=== PATIENT | female | born 1970 | race Caucasian/White ===

== ENCOUNTER 2021-06-27 12:10 | Emergency (ER) | payer OTHER, SELFPAY ==
--- NOTE | 2021-06-27 12:12 | XRR_ITS ---
PROCEDURE INFORMATION: Exam: XR Chest Exam date and time: 06/27/2021 12:12 PM Age: 51 years old Clinical indication: Condition or disease; Other: Covid TECHNIQUE: Imaging protocol: XR of the chest. Views: 1 view. COMPARISON: CR FluoroG CVA w CXR [id number] 03/29/2015 10:38 AM FINDINGS: Lungs: Unremarkable. No consolidation. Pleural spaces: Unremarkable. No pleural effusion. No pneumothorax. Heart/Mediastinum: Unremarkable. No cardiomegaly. Bones/joints: Unremarkable. XR/XR chest 1V portable [id number] IMPRESSION: No acute findings.
--- NOTE | 2021-06-27 12:13 | ECG_ITS ---
[facility] Test Date: 2021-06-27 Pat Name: Lor Picktet Department: Room: Gender: Female [employer] Operator: : [id number] Requested By: Noemy Evans Order Number: [id number] Shaw MD: Tay Webster M.D. Measurements Intervals [place] Rate: 73 P: 46 VT: 144 QRS: 16 QRSD: 93 T: 50 QT: 376 QTc: 415 Interpretive Statements SINUS RHYTHM No previous ECG available for comparison Electronically Signed On 06-27-2021 17:27:42 CDT by Tay Webster M.D. [id number]
[2021-06-27 12:28] VITALS: BP 128/88; PULSE 89; RESP 19; TEMP 37; O2SAT 97; BMI 29.2
== END 2021-06-27 14:36 | disposition left against medical advice (07) ==
LOC: ER 13:20
PROVIDERS: PCP Physician Assistant
DX: Z53.21 Procedure and treatment not carried out due to patient leaving prior to being seen by health care provider (principal)
CPT/HCPCS: 71045; 93005

== ENCOUNTER 2021-07-22 09:34 | Outpatient (CLI) | payer OTHER, SELFPAY ==
--- NOTE | 2021-07-22 09:43 | MM_ITS ---
WS: [id number] BILATERAL DIGITAL SCREENING MAMMOGRAPHY WITH CAD CLINICAL INFORMATION: SCREENING HISTORY: Screening mammogram. No current complaints. COMPARISON: TECHNIQUE: Bilateral CC and MLO views. FINDINGS: Scattered fibroglandular densities bilaterally. No suspicious focal mass, asymmetry, calcifications, or architectural distortion. No evidence of malignancy. A few incidental punctate calcifications. MM/[place] [id number] IMPRESSION: BI-RADS: 2-Benign FOLLOW UP: 1 Year Follow-up Recommend return to annual screening mammography.
== END 2021-07-22 09:35 | disposition home or self-care (01) ==
LOC: RADSHAW 09:40
PROVIDERS: PCP Physician Assistant; Visit Provider Obstetrics & Gynecology
DX: Z12.31 Encounter for screening mammogram for malignant neoplasm of breast (principal)
CPT/HCPCS: 77067

== ENCOUNTER 2022-05-08 13:32 | Oncology outpatient (recurring) (ONCR) | payer OTHER, SELFPAY | END 2022-05-18 23:59 | disposition home or self-care (01) | PROVIDERS: PCP Physician Assistant; Visit Provider Internal Medicine Medical Oncology | DX: C82.35 Follicular lymphoma grade IIIa, lymph nodes of inguinal region and lower limb (principal); R53.83 Other fatigue; R40.0 Somnolence | CPT/HCPCS: 99203 ==

== ENCOUNTER 2024-01-24 14:56 | Outpatient (CLI) | payer OTHER, SELFPAY ==
--- NOTE | 2024-01-24 15:30 | MM_ITS ---
WS: [id number] BILATERAL 3D TOMOSYNTHESIS DIGITAL SCREENING MAMMOGRAPHY WITH CAD CLINICAL INFORMATION: SCREENING HISTORY: Screening mammogram. No current complaints. COMPARISON: 2020 TECHNIQUE: Bilateral CC and MLO views. FINDINGS: Scattered fibroglandular densities bilaterally. No suspicious focal mass, asymmetry, calcifications, or architectural distortion. No evidence of malignancy. Incidental punctate calcifications. IMPRESSION: MM/[place] [id number] BI-RADS: 2-Benign FOLLOW UP: 1 Year Follow-up Recommend return to annual screening mammography.
== END 2024-01-24 14:57 | disposition home or self-care (01) ==
LOC: MOBLMAM 15:28
PROVIDERS: PCP Physician Assistant; Visit Provider Physician Assistant
DX: Z12.31 Encounter for screening mammogram for malignant neoplasm of breast (principal)
CPT/HCPCS: 77063; 77067